=== PATIENT | female | born 1995 | race African-American/Black ===

== ENCOUNTER 2018-09-17 01:22 | Inpatient (IN) ==
[2018-09-17] MEDS ORDERED: MEPERIDINE 50 MG/1 ML VIAL IV PRN (01:26)
[2018-09-17] MEDS ORDERED: ONDANSETRON 4 MG/2 ML VIAL IV PRN ×2 (01:26→03:39)
[2018-09-17] MEDS: LACTATED RINGERS 1,000 ML IV SCH ×2 (01:39→02:45)
[2018-09-17 01:53] LABS: Basophils % 0.1 % (0.0-0.8); Eosinophils # 0.1 10*3/uL (0.0-0.87); Eosinophils % 1.6 % (0.00-10.9); Hematocrit 37.5 VOL% (35.7-47.0); Hemoglobin 11.9 GM/DL (12.0-16.0); Immature Granulocytes % 0.6 %; Immature Granulocytes Absolute 0.05 #; Lymphocytes # 2.1 10*3/uL (1.4-4.0); Lymphocytes % 25.5 % (21.3-54.2); Mean Corpuscular HGB Conc 31.7 GM/DL (32-36); Mean Corpuscular Volume 95.2 FL (87-102); Mean Platelet Volume 10.5 FL (9.6-12.0); Neutrophils % 60.2 % (38.7-73.9); Platelet Count 274 T/CUMM (130-400); Red Blood Count 3.94 MC/CUMM (3.8-5.5); Red Cell Distribution Width 12.7 % (9.3-17.3); White Blood Count 8.1 T/CUMM (4-12)
[2018-09-17] MEDS ORDERED: AMPICILLIN INJ 2,000 MG in SODIUM CHLORIDE 0.9% 100 ML IV SCH (02:00)
[2018-09-17 02:03] LABS: Alanine Aminotransferase 16 U/L (13-56); Albumin 2.6 G/DL (3.4-5.0); Alkaline Phosphatase 724 U/L (45-117); Aspartate Amino Transferase 19 U/L (0-37); Bilirubin,Total < 0.39 MG/DL (0.2-1.0); Blood Urea Nitrogen 6 MG/DL (7-18); Calcium 9.3 MG/DL (8.5-10.1); Glucose 68 MG/DL (74-106); Osmolality,Calculated 272.5 MOS/KG (273-304); Total Protein 7.2 G/DL (6.4-8.3)
[2018-09-17] MEDS ORDERED: CITRIC ACID/SODIUM CITRATE 30 ML UDCUP PO ONE (02:28)
[2018-09-17] MEDS ORDERED: FAMOTIDINE 20 MG/2 ML VIAL IV ONE (02:28)
[2018-09-17] MEDS ORDERED: ceFAZolin 2,000 MG in PREMIX 1 EACH IV ONE (02:35)
[2018-09-17] MEDS ORDERED: OXYTOCIN 10 UNIT/ML VIAL IM ONE (02:35)
[2018-09-17] MEDS ORDERED: OXYTOCIN/LR 30 UNIT/1,000 ML BAG IV ONE (02:35)
[2018-09-17] MEDS ORDERED: OXYTOCIN 10 UNIT/ML VIAL ONE (02:36)
[2018-09-17] MEDS ORDERED: miSOPROStol 200 MCG TABLET ONE (02:39)
[2018-09-17] MEDS ORDERED: METHYLERGONOVINE 0.2 MG/1 ML AMP ONE (02:39)
[2018-09-17] MEDS ORDERED: TERBUTALINE 1 MG/1 ML VIAL SUBCUT ONE ×2 (02:40)
[2018-09-17 03:27] LABS: Apearance,Urine CLEAR (Clear); Bilirubin,Urine Negative (Negative); Blood, Urine Negative (Negative); Glucose,Urine (UA) Negative (Negative); Ketones,Urine Negative (Negative); Mucus,Urine Occasional /LPF (Occasional); Nitrite,Urine Negative (Negative); Protein,Urine Negative; Squamous Epithelial Cell,Urine Occasional /HPF (0-10); Urine Color Yellow (Yellow); Urine Urobilinogen < 2.0 EU/DL (0.2-1.0); WBC,Urine 1 /HPF (0-6)
[2018-09-17] MEDS ORDERED: OXYTOCIN/LR 20 UNIT/1,000 ML BAG IV ONE (03:39)
[2018-09-17] MEDS ORDERED: ACETAMINOPHEN 325 MG TABLET PO PRN (03:39)
[2018-09-17] MEDS ORDERED: BUPIVACAINE SPINAL 0.75% 2 ML AMP SPINAL ONE (03:39)
[2018-09-17] MEDS ORDERED: RHO(D) IMMUNE GLOBULIN 300 MCG SYRINGE IM ONE (03:39)
[2018-09-17] MEDS ORDERED: PHENYLEPHRINE 1 MG/10 ML SYRINGE IV ONE (03:39)
[2018-09-17] MEDS ORDERED: MORPHINE 10 MG/10 ML VIAL ONE (03:41)
[2018-09-17 03:46] LABS: Cord Arterial Blood HCO3 19.2 MMOL/L
[2018-09-17 03:48] LABS: Cord Venous Blood PCO2 43.3 MMHG; Cord Venous Blood PO2 35.4 MMHG
[2018-09-17] MEDS ORDERED: LACTATED RINGERS 1,000 ML IV SCH (04:00)
[2018-09-17] MEDS: IBUPROFEN 800 MG TABLET PO PRN ×2 (04:38→18:04)
[2018-09-17] MEDS ORDERED: HYDROmorphone 2 MG/1 ML VIAL ONE (06:22)
[2018-09-17] MEDS: HYDROmorphone 2 MG/1 ML VIAL IV PRN (06:26)
[2018-09-17] MEDS ORDERED: PROMETHAZINE 25 MG/1 ML VIAL IM PRN (08:05)
[2018-09-17] MEDS: MULTIVITAMIN (PRENATAL) TABLET PO SCH (08:53)
[2018-09-17] MEDS: ceFAZolin 1,000 MG in SYRINGE 1 EACH IV SCH ×2 (09:35→18:02)
[2018-09-17] MEDS: DOCUSATE SODIUM 100 MG CAPSULE PO SCH ×2 (09:38→20:48)
[2018-09-17 11:35] LABS: Basophils % 0.2 % (0.0-0.8); Eosinophils # 0.1 10*3/uL (0.0-0.87); Eosinophils % 1.1 % (0.00-10.9); Hematocrit 31.3 VOL% (35.7-47.0); Hemoglobin 10.4 GM/DL (12.0-16.0); Immature Granulocytes % 0.4 %; Immature Granulocytes Absolute 0.04 #; Lymphocytes # 2.2 10*3/uL (1.4-4.0); Lymphocytes % 25.1 % (21.3-54.2); Mean Corpuscular HGB Conc 33.2 GM/DL (32-36); Mean Corpuscular Volume 91.8 FL (87-102); Mean Platelet Volume 10.3 FL (9.6-12.0); Monocytes % 10.3 % (1.7-12.7); Neutrophils % 62.9 % (38.7-73.9); Platelet Count 221 T/CUMM (130-400); Red Blood Count 3.41 MC/CUMM (3.8-5.5); Red Cell Distribution Width 12.5 % (9.3-17.3); White Blood Count 8.9 T/CUMM (4-12)
[2018-09-17] MEDS ORDERED: METOCLOPRAMIDE 10 MG TABLET ONE (20:35)
[2018-09-17] MEDS: MAGNESIUM HYDROXIDE SUSP 30 ML UDCUP PO PRN (20:47)
[2018-09-17] MEDS: METOCLOPRAMIDE 10 MG TABLET PO SCH (20:51)
[2018-09-17] MEDS: SIMETHICONE CHEW 80 MG TABLET PO PRN (21:01)
[2018-09-18] MEDS: IBUPROFEN 800 MG TABLET PO PRN ×3 (00:36→20:54)
[2018-09-18 05:11] LABS: Basophils % 0.1 % (0.0-0.8); Eosinophils # 0.1 10*3/uL (0.0-0.87); Eosinophils % 1.2 % (0.00-10.9); Hemoglobin 11.8 GM/DL (12.0-16.0); Immature Granulocytes % 0.5 %; Immature Granulocytes Absolute 0.05 #; Lymphocytes # 2.9 10*3/uL (1.4-4.0); Lymphocytes % 26.8 % (21.3-54.2); Mean Corpuscular HGB Conc 32.8 GM/DL (32-36); Neutrophils % 59.4 % (38.7-73.9); Platelet Count 261 T/CUMM (130-400); Red Blood Count 3.87 MC/CUMM (3.8-5.5); Red Cell Distribution Width 12.6 % (9.3-17.3); White Blood Count 10.9 T/CUMM (4-12)
[2018-09-18] MEDS: METOCLOPRAMIDE 10 MG TABLET PO SCH ×3 (05:58→20:54)
[2018-09-18] MEDS: DOCUSATE SODIUM 100 MG CAPSULE PO SCH ×2 (08:07→20:55)
[2018-09-18] MEDS: MAGNESIUM HYDROXIDE SUSP 30 ML UDCUP PO PRN ×2 (08:07→20:54)
[2018-09-18] MEDS: MULTIVITAMIN (PRENATAL) TABLET PO SCH (11:20)
[2018-09-18] MEDS: SIMETHICONE CHEW 80 MG TABLET PO PRN (20:54)
[2018-09-19] MEDS: METOCLOPRAMIDE 10 MG TABLET PO SCH (05:01)
[2018-09-19 07:37] VITALS: BP 123/73
[2018-09-19] MEDS: DOCUSATE SODIUM 100 MG CAPSULE PO SCH (09:59)
[2018-09-19] MEDS: MAGNESIUM HYDROXIDE SUSP 30 ML UDCUP PO PRN (09:59)
[2018-09-19] MEDS: MULTIVITAMIN (PRENATAL) TABLET PO SCH (11:42)
== END 2018-09-19 13:25 | disposition home or self-care (01) | DRG 540 ==
LOC: N.LDOUT 01:22 → N.LD 01:24 → N.OB 06:54
PROVIDERS: ADMIT Obstetrics & Gynecology; ATTEND Obstetrics & Gynecology
PROC: LDCSECT (ICD-10-PCS; 2018-09-17 02:50)

== ENCOUNTER 2022-04-18 08:18 | Inpatient (IN) ==
[2022-04-18] MEDS ORDERED: ALBUTEROL/IPRATROPIUM 3 ML NEB RESP TX STA (09:20)
[2022-04-18] MEDS ORDERED: methylPREDNISolone SOD SUC 125 MG/2 ML VIAL IV STA (09:20)
[2022-04-18] MEDS ORDERED: ALBUTEROL NEB SOLN 5 MG/ML 20 ML/BOTTLE CONT NEB STA (09:20)
[2022-04-18] MEDS ORDERED: MAGNESIUM SULF RIDER 2 GM/50 ML PREMIX IV STA (09:22)
[2022-04-18] MEDS ORDERED: TERBUTALINE 1 MG/1 ML VIAL SUBCUT PRN (09:28)
[2022-04-18 10:22] LABS: Calcium 8.9 MG/DL (8.5-10.1); Osmolality,Calculated 275.4 MOS/KG (273-304); Potassium 3.5 MMOL/L (3.5-5.1)
[2022-04-18] MEDS ORDERED: ACETAMINOPHEN 325 MG TABLET PO PRN (12:26)
[2022-04-18] MEDS ORDERED: ALBUTEROL 2.5 MG/3 ML NEB RESP TX PRN ×2 (12:26)
[2022-04-18] MEDS ORDERED: ONDANSETRON 4 MG/2 ML VIAL IV PRN ×2 (12:26)
[2022-04-18] MEDS ORDERED: ALBUTEROL/IPRATROPIUM 3 ML NEB RESP TX SCH (13:00)
[2022-04-18 13:25] LABS: Arterial Base Excess iSTAT -8 MMOL/L (-2.5-2.5); Arterial Bicarbonate iSTAT 16.9 MMOL/L (20-26); Arterial O2 Saturation iSTAT 99 % (95-100); Arterial PCO2 iSTAT 31 MM HG (35-48); Arterial PO2 iSTAT 167 MM HG (80-95); Arterial Total CO2 iSTAT 18 MMO/L (23-27); Arterial pH iSTAT 7.349 (7.35-7.45)
[2022-04-18] MEDS: ALBUTEROL/IPRATROPIUM 3 ML NEB RESP TX SCH ×2 (13:25→18:00)
[2022-04-18] MEDS ORDERED: INFLUENZA VIRUS VACCINE 0.5 ML SYRINGE IM ONE (14:26)
[2022-04-18 14:35] LABS: Basophils % 0.2 % (0.0-0.8); Eosinophils % 0.2 % (0.00-10.9); Hemoglobin 11.8 GM/DL (12.0-16.0); Immature Granulocytes % 1.4 %; Lymphocytes # 0.8 10*3/uL (1.4-4.0); Lymphocytes % 5.6 % (21.3-54.2); Mean Corpuscular HGB Conc 32.8 GM/DL (32-36); Mean Platelet Volume 9.5 FL (9.6-12.0); Monocytes # 0.1 10*3/uL (0.11-0.8); Monocytes % 0.6 % (1.7-12.7); Platelet Count 283 T/CUMM (130-400); Red Blood Count 3.87 MC/CUMM (3.8-5.5); Red Cell Distribution Width 13.2 % (9.3-17.3); White Blood Count 13.8 T/CUMM (4-12)
[2022-04-18] MEDS: AZITHROMYCIN 250 MG TABLET PO SCH (14:44)
[2022-04-18 15:04] LABS: Band Neutrophils 6 % (0-10); Lymphocytes 9 % (20-55); Platelet Estimate Normal; Total Cells Counted 100
[2022-04-18] MEDS ORDERED: METOPROLOL TARTRATE 25 MG TABLET PO ONE (15:34)
[2022-04-18] MEDS ORDERED: SODIUM CHLORIDE 0.9% 500 ML IV ONE (15:54)
[2022-04-18] MEDS: methylPREDNISolone SOD SUC 40 MG/1 ML VIAL IV SCH (17:42)
[2022-04-18] MEDS: MONTELUKAST 10 MG TABLET PO SCH (20:19)
[2022-04-18] MEDS: ACETAMINOPHEN 325 MG TABLET PO PRN (20:20)
[2022-04-19] MEDS: methylPREDNISolone SOD SUC 40 MG/1 ML VIAL IV SCH ×3 (01:50→17:29)
[2022-04-19] MEDS: ALBUTEROL/IPRATROPIUM 3 ML NEB RESP TX SCH ×2 (01:53→09:13)
[2022-04-19 05:02] LABS: Basophils % 0.1 % (0.0-0.8); Eosinophils % 0.1 % (0.00-10.9); Hemoglobin 11.3 GM/DL (12.0-16.0); Immature Granulocytes % 1.3 %; Immature Granulocytes Absolute 0.27 #; Lymphocytes # 1.2 10*3/uL (1.4-4.0); Lymphocytes % 5.8 % (21.3-54.2); Mean Corpuscular HGB Conc 34.2 GM/DL (32-36); Mean Corpuscular Volume 92.2 FL (87-102); Mean Platelet Volume 9.5 FL (9.6-12.0); Monocytes % 4.7 % (1.7-12.7); Platelet Count 318 T/CUMM (130-400); Red Blood Count 3.58 MC/CUMM (3.8-5.5); White Blood Count 20.9 T/CUMM (4-12)
[2022-04-19 05:18] LABS: Calcium 9.1 MG/DL (8.5-10.1); Osmolality,Calculated 273.8 MOS/KG (273-304); Potassium 4.4 MMOL/L (3.5-5.1)
[2022-04-19 05:30] LABS: Lymphocytes 12 % (20-55); Platelet Estimate Adequate; Total Cells Counted 100
[2022-04-19] MEDS: LEVALBUTEROL 1.25 MG/3 ML NEB RESP TX SCH ×3 (07:53→19:20)
[2022-04-19] MEDS: AZITHROMYCIN 250 MG TABLET PO SCH (08:33)
[2022-04-19] MEDS: PANTOPRAZOLE 40 MG TABLET PO SCH (08:33)
[2022-04-19] MEDS: guaiFENesin/CODEINE 5 ML LIQUID PO PRN ×2 (10:45→18:34)
[2022-04-19] MEDS: METOPROLOL SUCCINATE XL 25 MG TABLET PO SCH (10:45)
[2022-04-19] MEDS ORDERED: atenoloL 25 MG TABLET PO SCH (11:00)
[2022-04-19] MEDS: MONTELUKAST 10 MG TABLET PO SCH (21:01)
[2022-04-20] MEDS: methylPREDNISolone SOD SUC 40 MG/1 ML VIAL IV SCH ×3 (01:03→17:20)
[2022-04-20] MEDS: ACETAMINOPHEN 325 MG TABLET PO PRN ×2 (04:02→13:46)
[2022-04-20 05:53] LABS: Basophils % 0.1 % (0.0-0.8); Eosinophils % 0.1 % (0.00-10.9); Hematocrit 32.4 VOL% (35.7-47.0); Hemoglobin 10.7 GM/DL (12.0-16.0); Immature Granulocytes % 1.5 %; Immature Granulocytes Absolute 0.28 #; Lymphocytes % 5.1 % (21.3-54.2); Mean Corpuscular Volume 92.6 FL (87-102); Mean Platelet Volume 9.6 FL (9.6-12.0); Monocytes # 0.6 10*3/uL (0.11-0.8); Monocytes % 3.4 % (1.7-12.7); Neutrophils % 89.8 % (38.7-73.9); Platelet Count 297 T/CUMM (130-400); Red Cell Distribution Width 13.3 % (9.3-17.3); White Blood Count 18.6 T/CUMM (4-12)
[2022-04-20 06:08] LABS: Calcium 9.2 MG/DL (8.5-10.1); Osmolality,Calculated 272.8 MOS/KG (273-304); Potassium 4.2 MMOL/L (3.5-5.1)
[2022-04-20] MEDS: LEVALBUTEROL 1.25 MG/3 ML NEB RESP TX SCH ×4 (07:19→19:51)
[2022-04-20] MEDS ORDERED: BISACODYL 10 MG SUPP RECTAL ONE (07:29)
[2022-04-20] MEDS: MULTIVITAMIN (PRENATAL) TABLET PO SCH (08:23)
[2022-04-20] MEDS: POLYETHYLENE GLYCOL POWDER 17 GM PACK PO SCH (08:24)
[2022-04-20] MEDS: PANTOPRAZOLE 40 MG TABLET PO SCH (08:24)
[2022-04-20] MEDS: METOPROLOL SUCCINATE XL 25 MG TABLET PO SCH (08:24)
[2022-04-20] MEDS: AZITHROMYCIN 250 MG TABLET PO SCH (08:24)
[2022-04-20] MEDS ORDERED: SODIUM PHOSPHATE ENEMA 133 ML BOTTLE RECTAL ONE (14:08)
[2022-04-20] MEDS: MONTELUKAST 10 MG TABLET PO SCH (20:39)
[2022-04-21] MEDS: LEVALBUTEROL 1.25 MG/3 ML NEB RESP TX SCH ×2 (00:04→06:51)
[2022-04-21] MEDS: methylPREDNISolone SOD SUC 40 MG/1 ML VIAL IV SCH (02:08)
[2022-04-21 06:37] LABS: Calcium 9.2 MG/DL (8.5-10.1); Osmolality,Calculated 273.8 MOS/KG (273-304)
[2022-04-21 07:49] LABS: Basophils % 0.1 % (0.0-0.8); Hematocrit 33.9 VOL% (35.7-47.0); Hemoglobin 11.2 GM/DL (12.0-16.0); Lymphocytes # 1.3 10*3/uL (1.4-4.0); Lymphocytes % 7.6 % (21.3-54.2); Mean Corpuscular Volume 93.1 FL (87-102); Mean Platelet Volume 9.8 FL (9.6-12.0); Monocytes # 1.1 10*3/uL (0.11-0.8); Monocytes % 6.8 % (1.7-12.7); Neutrophils % 83.6 % (38.7-73.9); Platelet Count 323 T/CUMM (130-400); Red Blood Count 3.64 MC/CUMM (3.8-5.5); Red Cell Distribution Width 13.2 % (9.3-17.3); White Blood Count 16.7 T/CUMM (4-12)
[2022-04-21] MEDS: POLYETHYLENE GLYCOL POWDER 17 GM PACK PO SCH (08:35)
[2022-04-21] MEDS: AZITHROMYCIN 250 MG TABLET PO SCH (08:35)
[2022-04-21] MEDS: MULTIVITAMIN (PRENATAL) TABLET PO SCH (08:35)
[2022-04-21] MEDS: METOPROLOL SUCCINATE XL 25 MG TABLET PO SCH (08:35)
[2022-04-21] MEDS: PANTOPRAZOLE 40 MG TABLET PO SCH (08:35)
[2022-04-21] MEDS ORDERED: INFLUENZA VIRUS VACCINE 0.5 ML SYRINGE IM ONE (09:00)
[2022-04-21 09:31] VITALS: BP 132/78
[2022-04-21] MEDS: ACETAMINOPHEN 325 MG TABLET PO PRN (09:48)
== END 2022-04-21 10:38 | disposition home or self-care (01) | DRG 566 ==
LOC: N.ED 08:18 → SUATTDRO 12:26 → N.EDINP 12:27 → N.ICU 13:33
PROVIDERS: ADMIT Family Medicine; ATTEND Internal Medicine